=== PATIENT | female | born 1960 | race Caucasian/White ===

== ENCOUNTER 2016-10-19 14:11 | Emergency (ER) | payer OTHER ==
[2016-10-19 14:21] VITALS: BP 129/64; PULSE 64; RESP 20; TEMP 97.7
[2016-10-19] MEDS ORDERED: HYDROcodone/APAP 5-325MG 1 EACH TAB PO STA (14:40)
[2016-10-19] MEDS ORDERED: ORPHENADRINE 30 MG/ML 2 ML VIAL IM STA (14:40)
--- NOTE | 2016-10-19 15:19 | ED ---
Recheck HPI - General Chief Complaint: Recheck/Abnormal Lab/Rx Stated Complaint: pain all over-cancer patient Time Seen by Provider: 10/19/16 14:37 Source: patient, RN notes reviewed Mode of arrival: ambulatory Limitations: no limitations - History of Present Illness Initial Comments: Patient is a 56-year-old female presents to the emergency room for a medication refill. Patient states she has stage III endometrial cancer which is being treated for. Patient states her physician wrote her for a prescription of morphine. Patient states they wrote her a prescription for 90 pills but her insurance only authorized 60. Patient states she took her last dose yesterday and ran out. Patient states she's having all over body pain. Patient states she is unable to see her physician until a week from tomorrow. Patient states she needs enough pain medication to get her through the next week. Patient denies chest pain, shortness breath, headache, dizziness, fevers, chills. - Related Data Home Medications Medication Instructions Recorded Confirmed Levothyroxine Sodium [Synthroid] 25 mcg PO DAILY 12/05/13 10/19/16 Metoprolol Succinate [Toprol XL] 12.5 mg PO DAILY 05/08/15 10/19/16 Hydrochlorothiazide [Hydrodiuril] 25 mg PO DAILY 11/13/15 10/19/16 Cholecalciferol [Vitamin D3] 2,000 unit PO DAILY 12/17/15 10/19/16 risperiDONE [RisperDAL] 2 mg PO DAILY 12/17/15 10/19/16 Aspirin EC [Ecotrin Low Dose] 81 mg PO DAILY 02/29/16 10/19/16 Gabapentin [Neurontin] 300 mg PO QAM 02/29/16 10/19/16 Gabapentin [Neurontin] 600 mg PO BID@1700,2100 02/29/16 10/19/16 Lisinopril [Zestril] 20 mg PO DAILY 02/29/16 10/19/16 Methocarbamol [Robaxin] 750 mg PO TID PRN 02/29/16 10/19/16 Multivitamins, Thera [Multivitamin 1 tab PO DAILY 02/29/16 10/19/16 (formulary)] Omeprazole 20 mg PO DAILY 02/29/16 10/19/16 Sertraline [Zoloft] 200 mg PO DAILY 02/29/16 10/19/16 Simvastatin [Zocor] 80 mg PO HS 02/29/16 10/19/16 clonazePAM [KlonoPIN] 0.5 mg PO DAILY PRN 02/29/16 10/19/16 hydrOXYzine PAMOATE [Vistaril] 25 mg PO QID PRN 02/29/16 10/19/16 HYDROmorphone HCL [HYDROmorphone 8 mg PO DIRECTED 10/19/16 10/19/16 HCL] Morphine Sulfate [Morphine Sulfate 15 mg PO BID 10/19/16 10/19/16 ER] Previous Rx's Medication Instructions Recorded Docusate [Colace] 100 mg PO BID PRN #20 capsule 05/10/15 HYDROcodone/APAP 10-325MG [[place] 1 each PO Q6H PRN #30 tab 02/29/16 10-325] Morphine Sulfate ER [Ms Contin] 15 mg PO Q8H PRN #24 tab 10/19/16 Allergies Allergy/AdvReac Type Severity Reaction Status Date / Time No Known Allergies Allergy Verified 10/19/16 14:21 Review of Systems ROS Statement: Those systems with pertinent positive or pertinent negative responses have been documented in the HPI. ROS Other: All systems not noted in ROS Statement are negative. Past Medical History Past Medical History: Asthma, Cancer, COPD, GERD/Reflux, Myocardial Infarction ( [place]), Seizure Disorder, Sleep Apnea/CPAP/BIPAP Additional Past Medical History / Comment(s): complex regional pain syndrome/ sleep apnea, heart attack January 2015, stage 3 endometrial cancer Last Myocardial Infarction Date:: 01/2015 History of Any Multi-Drug Resistant Organisms: None Reported Past Surgical History: Breast Surgery, Cholecystectomy, Heart Catheterization Additional Past Surgical History / Comment(s): CYST REMOVAL FROM LEFT BREAST AND OVARY LEFT FOOT BUNIONECTOMY LEFT FOOT VAGAL NERVE STIMULATOR (left side of chest) Past Anesthesia/Blood Transfusion Reactions: No Reported Reaction Type of Cardiac Device: Permanent Pacemaker Device Placement Date:: 1996 Past Psychological History: Anxiety, Bipolar, Depression, Schizoaffective Disorder, Schizophrenia Smoking Status: Current some day smoker Past Alcohol Use History: None Reported Past Drug Use History: None Reported - Past Family History Mother Family Medical History: Diabetes Mellitus General Exam - General Exam Comments Initial Comments: Sitting on exam chair, no acute distress. Limitations: no limitations General appearance: alert, in no apparent distress Head exam: Present: atraumatic, normocephalic, normal inspection Eye exam: Present: normal appearance ENT exam: Present: normal exam Neck exam: Present: normal inspection Respiratory exam: Present: normal lung sounds bilaterally. Absent: respiratory distress Cardiovascular Exam: Present: regular rate, normal rhythm, normal heart sounds Extremities exam: Present: normal inspection Back exam: Present: normal inspection Neurological exam: Present: alert, oriented X3, CN II-XII intact, normal gait Psychiatric exam: Present: normal affect, normal mood Skin exam: Present: warm, dry, intact, normal color. Absent: rash Course Vital Signs 10/19/16 14:18 Temperature 97.7 F Pulse Rate 64 Respiratory 20 Rate Blood Pressure 129/64 O2 Sat by Pulse 98 Oximetry Medical Decision Making - Medical Decision Making Patient is a 56-year-old female presents emergency room for evaluation of medication refill. Patient states she has endometrial cancer. Agreed to send patient home with enough medication to last her until her next appointment with her physician. Patient states she understands everything that was discussed with her. Return parameters discussed. Case discussed with Dr. Kumar. Disposition Clinical Impression: Encounter for medication refill, Endometrial cancer, Fall Disposition: HOME SELF-CARE Condition: Good Additional Instructions: Take medications as needed. Please follow-up with primary care provider. If any new symptom arises or symptoms worsen, return to ER as soon as possible. Prescriptions: Morphine Sulfate ER [Ms Contin] 15 mg PO Q8H PRN #24 tab PRN Reason: Pain Referrals: Casi Monteiro MD [Primary Care Provider] - 1-2 days Time of Disposition: 15:17
== END 2016-10-19 15:25 | disposition home or self-care (01) ==
LOC: EC 14:11
DX: C54.1 Malignant neoplasm of endometrium (principal); Z76.0 Encounter for issue of repeat prescription; K21.9 Gastro-esophageal reflux disease without esophagitis; G90.50 Complex regional pain syndrome I, unspecified; G40.909 Epilepsy, unspecified, not intractable, without status epilepticus; F41.9 Anxiety disorder, unspecified; F20.9 Schizophrenia, unspecified; F31.9 Bipolar disorder, unspecified; I25.2 Old myocardial infarction; F17.200 Nicotine dependence, unspecified, uncomplicated; Z79.82 Long term (current) use of aspirin; Z79.891 Long term (current) use of opiate analgesic; Z79.899 Other long term (current) drug therapy; W19.XXXA Unspecified fall, initial encounter
CPT/HCPCS: 99282

== ENCOUNTER 2016-11-26 07:12 | Emergency (ER) | payer OTHER ==
[2016-11-26] MEDS ORDERED: LORazepam 2 MG/ML SYRINGE IV STA (07:44)
[2016-11-26] MEDS ORDERED: SODIUM CHLORIDE 0.9% 500 ML IV STA (07:44)
[2016-11-26] MEDS ORDERED: HYDROmorphone 1 MG/ML 1 ML SYRINGE IVP STA (07:45)
--- NOTE | 2016-11-26 07:47 | ED ---
General Adult HPI - General Chief complaint: Shortness of Breath Stated complaint: diff breathing Time Seen by Provider: 11/26/16 07:15 Source: patient, RN notes reviewed Mode of arrival: wheelchair Limitations: no limitations - History of Present Illness Initial comments: This is a 56-year-old female with endometrial cancer as well as a past history of COPD and a current history of smoking. Patient comes in today because she states her last couple days she's been short of breath. Patient denies any recent fever chills or cough. Patient denies any chest pain or palpitations. Patient states she's been out of her Klonopin for a few days because she receives a from the [employer] and they have been behind. Patient states she does have a history of anxiety. Patient denies any abdominal pain. Patient denies any nausea vomiting diarrhea. Patient denies any lightheadedness dizziness or near syncopal episode. Patient denies any headache patient denies numbness weakness. Patient denies any swelling in her legs. Patient denies any calf tenderness. - Related Data Home Medications Medication Instructions Recorded Confirmed Levothyroxine Sodium [Synthroid] 25 mcg PO DAILY 12/05/13 10/19/16 Metoprolol Succinate [Toprol XL] 12.5 mg PO DAILY 05/08/15 10/19/16 Hydrochlorothiazide [Hydrodiuril] 25 mg PO DAILY 11/13/15 10/19/16 Cholecalciferol [Vitamin D3] 2,000 unit PO DAILY 12/17/15 10/19/16 risperiDONE [RisperDAL] 2 mg PO DAILY 12/17/15 10/19/16 Aspirin EC [Ecotrin Low Dose] 81 mg PO DAILY 02/29/16 10/19/16 Gabapentin [Neurontin] 300 mg PO QAM 02/29/16 10/19/16 Gabapentin [Neurontin] 600 mg PO BID@1700,2100 02/29/16 10/19/16 Lisinopril [Zestril] 20 mg PO DAILY 02/29/16 10/19/16 Methocarbamol [Robaxin] 750 mg PO TID PRN 02/29/16 10/19/16 Multivitamins, Thera [Multivitamin 1 tab PO DAILY 02/29/16 10/19/16 (formulary)] Omeprazole 20 mg PO DAILY 02/29/16 10/19/16 Sertraline [Zoloft] 200 mg PO DAILY 02/29/16 10/19/16 Simvastatin [Zocor] 80 mg PO HS 02/29/16 10/19/16 clonazePAM [KlonoPIN] 0.5 mg PO DAILY PRN 02/29/16 10/19/16 hydrOXYzine PAMOATE [Vistaril] 25 mg PO QID PRN 02/29/16 10/19/16 HYDROmorphone HCL [HYDROmorphone 8 mg PO DIRECTED 10/19/16 10/19/16 HCL] Morphine Sulfate [Morphine Sulfate 15 mg PO BID 10/19/16 10/19/16 ER] Previous Rx's Medication Instructions Recorded Docusate [Colace] 100 mg PO BID PRN #20 capsule 05/10/15 HYDROcodone/APAP 10-325MG [[place] 1 each PO Q6H PRN #30 tab 02/29/16 10-325] Morphine Sulfate ER [Ms Contin] 15 mg PO Q8H PRN #24 tab 10/19/16 Magnesium Oxide [Mag-Ox] 250 mg PO TID #9 tablet 11/26/16 Potassium Chloride ER [K-Dur 20] 20 meq PO DAILY #5 tab 11/26/16 clonazePAM [KlonoPIN] 0.5 mg PO BID #14 tablet 11/26/16 clonazePAM [KlonoPIN] 2 mg PO HS #7 tab 11/26/16 Allergies Allergy/AdvReac Type Severity Reaction Status Date / Time No Known Allergies Allergy Verified 11/26/16 07:19 Review of Systems ROS Statement: Those systems with pertinent positive or pertinent negative responses have been documented in the HPI. ROS Other: All systems not noted in ROS Statement are negative. Past Medical History Past Medical History: Asthma, Cancer, COPD, GERD/Reflux, Myocardial Infarction ( [place]), Seizure Disorder, Sleep Apnea/CPAP/BIPAP Additional Past Medical History / Comment(s): complex regional pain syndrome/ sleep apnea, heart attack January 2015, stage 3 endometrial cancer Last Myocardial Infarction Date:: 01/2015 History of Any Multi-Drug Resistant Organisms: None Reported Past Surgical History: Breast Surgery, Cholecystectomy, Heart Catheterization Additional Past Surgical History / Comment(s): CYST REMOVAL FROM LEFT BREAST AND OVARY LEFT FOOT BUNIONECTOMY LEFT FOOT VAGAL NERVE STIMULATOR (left side of chest) Past Anesthesia/Blood Transfusion Reactions: No Reported Reaction Type of Cardiac Device: Permanent Pacemaker Device Placement Date:: 1996 Past Psychological History: Anxiety, Bipolar, Depression, Schizoaffective Disorder, Schizophrenia Smoking Status: Current every day smoker Past Alcohol Use History: None Reported Past Drug Use History: None Reported - Past Family History Mother Family Medical History: Diabetes Mellitus General Exam - General Exam Comments Initial Comments: GENERAL: Patient is well-developed and well-nourished. Patient is nontoxic and well- hydrated and is in mild distress. ENT: Neck is soft and supple. No significant lymphadenopathy is noted. Oropharynx is clear. Moist mucous membranes. Neck has full range of motion without eliciting any pain. EYES: The sclera were anicteric and conjunctiva were pink and moist. Extraocular movements were intact and pupils were equal round and reactive to light. Eyelids were unremarkable. PULMONARY: Unlabored respirations. Good breath sounds bilaterally. No audible rales rhonchi or wheezing was noted. CARDIOVASCULAR: There is a regular rate and rhythm without any murmurs gallops or rubs. ABDOMEN: Soft and nontender with normal bowel sounds. No palpable organomegaly was noted. There is no palpable pulsatile mass. SKIN: Skin is clear with no lesions or rashes and otherwise unremarkable. NEUROLOGIC: Patient is alert and oriented x3. Cranial nerves II through XII are grossly intact. Motor and sensory are also intact. Normal speech, volume and content. Symmetrical smile. MUSCULOSKELETAL: Normal extremities with adequate strength and full range of motion. No lower extremity swelling or edema. No calf tenderness. LYMPHATICS: No significant lymphadenopathy is noted PSYCHIATRIC: Normal psychiatric evaluation. Normal interpersonal interactions appears functionally intact in deals appropriately with others. No signs of depression. Patient seems mildly anxious Limitations: no limitations Course Vital Signs 11/26/16 11/26/16 11/26/16 07:16 07:47 08:13 Temperature 97.8 F Pulse Rate 63 45 L Respiratory 26 H 26 H 18 Rate Blood Pressure 147/73 154/81 O2 Sat by Pulse 99 100 Oximetry 11/26/16 09:07 Temperature Pulse Rate 56 L Respiratory 18 Rate Blood Pressure 127/79 O2 Sat by Pulse 100 Oximetry Medical Decision Making - Medical Decision Making EKG shows sinus bradycardia with occasional PVC at 57 bpm MI interval is 140 QRS is 90 QT intervals 46 QTC is 531. Patient's EKG shows no ST segment elevation or depression. Patient's pulse ox on room air is 99%. Patient's chest x-ray shows no acute abnormality. I went back in to reevaluate the patient after she was medicated she felt considerably better and no longer short of breath. Patient was hypomagnesemic and hypokalemic so I started replacing magnesium and potassium. - Lab Data Result diagrams: 11/26/16 07:40 11/26/16 07:40 Lab Results 11/26/16 11/26/16 11/26/16 Range/Units 07:40 07:40 07:40 WBC 2.0 L* (3.8-10.6) k/uL RBC 3.50 L (3.80-5.40) m/uL Hgb 10.6 L (11.4-16.0) gm/dL Hct 28.9 L (34.0-46.0) % MCV 82.8 (80.0-100.0) fL MCH 30.2 (25.0-35.0) pg MCHC 36.5 (31.0-37.0) g/dL RDW 16.3 H (11.5-15.5) % Plt Count 99 L (150-450) k/uL Neutrophils % 53 % Lymphocytes % 39 % Monocytes % 3 % Eosinophils % 0 % Basophils % 1 % Neutrophils # 1.0 L (1.3-7.7) k/uL Lymphocytes # 0.8 L (1.0-4.8) k/uL Monocytes # 0.1 (0-1.0) k/uL Eosinophils # 0.0 (0-0.7) k/uL Basophils # 0.0 (0-0.2) k/uL Manual Slide Review Performed Large Platelets Present Poikilocytosis (manual Present Anisocytosis Slight PT (9.0-12.0) sec INR (<1.1) APTT (22.0-30.0) sec D-Dimer (<0.60) mg/L FEU Sodium 133 L (137-145) mmol/L Potassium 2.7 L* (3.5-5.1) mmol/L Chloride 96 L (98-107) mmol/L Carbon Dioxide 25 (22-30) mmol/L Anion Gap 12 mmol/L BUN 11 (7-17) mg/dL Creatinine 0.50 L (0.52-1.04) mg/dL Est GFR (MDRD) Af Amer >60 (>60 ml/min/1.73 sqM) Est GFR (MDRD) Non-Af >60 (>60 ml/min/1.73 sqM) Glucose 124 H (74-99) mg/dL Calcium 9.9 (8.4-10.2) mg/dL Magnesium 1.0 L* (1.6-2.3) mg/dL Total Bilirubin 1.1 (0.2-1.3) mg/dL AST 41 H (14-36) U/L ALT 36 (9-52) U/L Alkaline Phosphatase 78 (38-126) U/L Total Creatine Kinase 369 H (30-135) U/L CK-MB (CK-2) 3.1 H* (0.0-2.4) ng/mL CK-MB (CK-2) Rel Index 0.8 Troponin I <0.012 (0.000-0.034) ng/mL Total Protein 7.4 (6.3-8.2) g/dL Albumin 4.6 (3.5-5.0) g/dL 11/26/16 Range/Units 07:40 WBC (3.8-10.6) k/uL RBC (3.80-5.40) m/uL Hgb (11.4-16.0) gm/dL Hct (34.0-46.0) % MCV (80.0-100.0) fL MCH (25.0-35.0) pg MCHC (31.0-37.0) g/dL RDW (11.5-15.5) % Plt Count (150-450) k/uL Neutrophils % % Lymphocytes % % Monocytes % % Eosinophils % % Basophils % % Neutrophils # (1.3-7.7) k/uL Lymphocytes # (1.0-4.8) k/uL Monocytes # (0-1.0) k/uL Eosinophils # (0-0.7) k/uL Basophils # (0-0.2) k/uL Manual Slide Review Large Platelets Poikilocytosis (manual Anisocytosis PT 10.7 (9.0-12.0) sec INR 1.1 (<1.1) APTT 25.2 (22.0-30.0) sec D-Dimer 0.28 (<0.60) mg/L FEU Sodium (137-145) mmol/L Potassium (3.5-5.1) mmol/L Chloride (98-107) mmol/L Carbon Dioxide (22-30) mmol/L Anion Gap mmol/L BUN (7-17) mg/dL Creatinine (0.52-1.04) mg/dL Est GFR (MDRD) Af Amer (>60 ml/min/1.73 sqM) Est GFR (MDRD) Non-Af (>60 ml/min/1.73 sqM) Glucose (74-99) mg/dL Calcium (8.4-10.2) mg/dL Magnesium (1.6-2.3) mg/dL Total Bilirubin (0.2-1.3) mg/dL AST (14-36) U/L ALT (9-52) U/L Alkaline Phosphatase (38-126) U/L Total Creatine Kinase (30-135) U/L CK-MB (CK-2) (0.0-2.4) ng/mL CK-MB (CK-2) Rel Index Troponin I (0.000-0.034) ng/mL Total Protein (6.3-8.2) g/dL Albumin (3.5-5.0) g/dL Disposition Clinical Impression: Anxiety, Hypomagnesemia, Hypokalemia Disposition: HOME SELF-CARE Prescriptions: clonazePAM [KlonoPIN] 2 mg PO HS #7 tab clonazePAM [KlonoPIN] 0.5 mg PO BID #14 tablet Magnesium Oxide [Mag-Ox] 250 mg PO TID #9 tablet Potassium Chloride ER [K-Dur 20] 20 meq PO DAILY #5 tab Referrals: Casi Monteiro MD [Primary Care Provider] - 1-2 days Time of Disposition: 10:25
[2016-11-26 08:15] VITALS: RESP 18
[2016-11-26 08:15] LABS: Anisocytosis Slight; Basophils % (A) 1 %; CH 29.7; Eosinophils % (A) 0 %; HCT 28.9 % (34.0-46.0); HDW 2.75; HGB 10.6 gm/dL (11.4-16.0); Luc # (Auto) 0.09; Luc % (Auto) 4; Lymphocytes # (A) 0.8 k/uL (1.0-4.8); Lymphocytes % (A) 39 %; MCH 30.2 pg (25.0-35.0); MCHC 36.5 g/dL (31.0-37.0); MCV 82.8 fL (80.0-100.0); Monocytes # (A) 0.1 k/uL (0-1.0); Monocytes % (A) 3 %; Neutrophils % (A) 53 %; RDW 16.3 % (11.5-15.5)
--- NOTE | 2016-11-26 08:17 | XR ---
EXAMINATION TYPE: XR chest 2V DATE OF EXAM: 11/26/2016 8:08 AM COMPARISON: 02/28/2016 HISTORY: 56-year-old female difficulty in breathing TECHNIQUE: Frontal and lateral views FINDINGS: Heart is upper limits of normal in size. Atherosclerotic arch calcifications. Mild diffuse interstiti al prominence as a chronic appearance. Generator device projecting over the anterior left chest with leads extending to the left side of the neck. No consolidation or pleural effusion. Band of atelectas is at the posterior base. IMPRESSION: Borderline cardiomegaly and chronic changes, possible underlying COPD. Clinically correlate. No acute process seen.
[2016-11-26 08:23] LABS: INR 1.1 (<1.1); Partial Thromboplastin Time 25.2 sec (22.0-30.0); Prothrombin Time 10.7 sec (9.0-12.0)
[2016-11-26 08:28] LABS: ALT 36 U/L (9-52); AST 41 U/L (14-36); Alkaline Phosphatase 78 U/L (38-126); Anion Gap 12 mmol/L; Blood Urea Nitrogen 11 mg/dL (7-17); Calcium 9.9 mg/dL (8.4-10.2); Carbon Dioxide 25 mmol/L (22-30); Chloride 96 mmol/L (98-107); Glucose 124 mg/dL (74-99); Non-African American GFR(MDRD) >60 (>60 ml/min/1.73 sqM); Sodium 133 mmol/L (137-145); Total Bilirubin 1.1 mg/dL (0.2-1.3); Total Protein 7.4 g/dL (6.3-8.2)
[2016-11-26 08:29] LABS: Large Platelets Present; Manual Review Performed
[2016-11-26 08:49] LABS: Potassium 2.7 mmol/L (3.5-5.1)
[2016-11-26] MEDS ORDERED: MAGNESIUM SULFATE-D5W PMX 1 GM in DEXTROSE/WATER 1 100ML.BAG IVPB ONE (08:51)
[2016-11-26] MEDS ORDERED: POTASSIUM CHLORIDE ER 20 MEQ TAB.ER PO STA ×2 (08:51→10:07)
[2016-11-26 09:04] LABS: Creatine Kinase 369 U/L (30-135)
[2016-11-26 09:17] LABS: Troponin I <0.012 ng/mL (0.000-0.034)
[2016-11-26 09:22] LABS: Creatine Kinase MB 3.1 ng/mL (0.0-2.4)
[2016-11-26 10:31] VITALS: BP 156/73; PULSE 55; TEMP 98
== END 2016-11-26 10:40 | disposition home or self-care (01) ==
LOC: EC 07:12
DX: F41.9 Anxiety disorder, unspecified (principal); E87.6 Hypokalemia; E83.42 Hypomagnesemia; R00.1 Bradycardia, unspecified; R06.02 Shortness of breath; K21.9 Gastro-esophageal reflux disease without esophagitis; G40.909 Epilepsy, unspecified, not intractable, without status epilepticus; I25.2 Old myocardial infarction; F31.9 Bipolar disorder, unspecified; F25.9 Schizoaffective disorder, unspecified; F17.200 Nicotine dependence, unspecified, uncomplicated; Z95.0 Presence of cardiac pacemaker; Z79.82 Long term (current) use of aspirin; Z79.891 Long term (current) use of opiate analgesic; Z79.899 Other long term (current) drug therapy
CPT/HCPCS: 99285; 96365; 96375 ×2; 36415; 93005; 85379; 80053; 82550; 82553; 83735; 84484; 85025; 85610; 85730; 87040; 71020; J2060; J1170; J3475

== ENCOUNTER 2016-12-25 10:18 | Emergency (ER) | payer OTHER ==
[2016-12-25] MEDS ORDERED: cloNIDine 0.1 MG/24HR PATCH 1 PATCH PATCH TRANSDERM STA (11:58)
[2016-12-25] MEDS ORDERED: DICYCLOMINE 10 MG/ML 2 ML AMP IM STA (11:58)
[2016-12-25] MEDS ORDERED: ORPHENADRINE 30 MG/ML 2 ML VIAL IM STA (11:58)
--- NOTE | 2016-12-25 12:16 | ED ---
Abdominal Pain HPI - General Chief Complaint: Abdominal Pain Stated Complaint: flu symptoms Time Seen by Provider: 12/25/16 11:07 Source: patient, RN notes reviewed Mode of arrival: wheelchair Limitations: no limitations - History of Present Illness Initial Comments: 56-year-old female presents to the emergency department with a chief complaint of needing help with medication withdrawal. Patient was on morphine and Dilaudid with her doctor to get off on Monday. Patient states she just needs something to help with her symptoms that she goes through withdrawal. Patient states she's having cramping she's having abdominal cramping she's having some nausea. Patient states she hasn't had any fever or chills. Patient states that she was concerned due to her continued symptoms so she thought that she should be evaluated. Patient denies any recent fever, chills, shortness of breath, chest pain, back pain, numbness or tingling, dysuria or hematuria, constipation or diarrhea, headaches or visual changes, or any other current symptoms. - Related Data Home Medications Medication Instructions Recorded Confirmed Levothyroxine Sodium [Synthroid] 25 mcg PO DAILY 12/05/13 12/25/16 Metoprolol Succinate [Toprol XL] 12.5 mg PO DAILY 05/08/15 12/25/16 Hydrochlorothiazide [Hydrodiuril] 25 mg PO DAILY 11/13/15 12/25/16 Cholecalciferol [Vitamin D3] 2,000 unit PO DAILY 12/17/15 12/25/16 risperiDONE [RisperDAL] 2 mg PO DAILY 12/17/15 12/25/16 Aspirin EC [Ecotrin Low Dose] 81 mg PO DAILY 02/29/16 12/25/16 Gabapentin [Neurontin] 300 mg PO QAM 02/29/16 12/25/16 Gabapentin [Neurontin] 600 mg PO BID@1700,2100 02/29/16 12/25/16 Lisinopril [Zestril] 20 mg PO DAILY 02/29/16 12/25/16 Methocarbamol [Robaxin] 750 mg PO TID PRN 02/29/16 12/25/16 Multivitamins, Thera [Multivitamin 1 tab PO DAILY 02/29/16 12/25/16 (formulary)] Omeprazole 20 mg PO DAILY 02/29/16 12/25/16 Sertraline [Zoloft] 200 mg PO DAILY 02/29/16 12/25/16 Simvastatin [Zocor] 80 mg PO HS 02/29/16 12/25/16 clonazePAM [KlonoPIN] 0.5 mg PO DAILY PRN 02/29/16 12/25/16 hydrOXYzine PAMOATE [Vistaril] 25 mg PO QID PRN 02/29/16 12/25/16 HYDROcodone/APAP 10-325MG [[place] 1 tab PO Q6H PRN 12/25/16 12/25/16 10-325] Previous Rx's Medication Instructions Recorded Docusate [Colace] 100 mg PO BID PRN #20 capsule 05/10/15 Magnesium Oxide [Mag-Ox] 250 mg PO TID #9 tablet 11/26/16 Potassium Chloride ER [K-Dur 20] 20 meq PO DAILY #5 tab 11/26/16 clonazePAM [KlonoPIN] 0.5 mg PO BID #14 tablet 11/26/16 clonazePAM [KlonoPIN] 2 mg PO HS #7 tab 11/26/16 Ondansetron Odt [Zofran ODT] 4 mg PO Q8HR PRN #20 tab 12/25/16 Allergies Allergy/AdvReac Type Severity Reaction Status Date / Time No Known Allergies Allergy Verified 12/25/16 10:43 Review of Systems ROS Statement: Those systems with pertinent positive or pertinent negative responses have been documented in the HPI. ROS Other: All systems not noted in ROS Statement are negative. Past Medical History Past Medical History: Asthma, Cancer, COPD, GERD/Reflux, Myocardial Infarction ( [place]), Seizure Disorder, Sleep Apnea/CPAP/BIPAP Additional Past Medical History / Comment(s): complex regional pain syndrome/ sleep apnea, heart attack January 2015, stage 3 endometrial cancer Last Myocardial Infarction Date:: 01/2015 History of Any Multi-Drug Resistant Organisms: None Reported Past Surgical History: Breast Surgery, Cholecystectomy, Heart Catheterization Additional Past Surgical History / Comment(s): CYST REMOVAL FROM LEFT BREAST AND OVARY LEFT FOOT BUNIONECTOMY LEFT FOOT VAGAL NERVE STIMULATOR (left side of chest) Past Anesthesia/Blood Transfusion Reactions: No Reported Reaction Type of Cardiac Device: Permanent Pacemaker Device Placement Date:: 1996 Past Psychological History: Anxiety, Bipolar, Depression, Schizoaffective Disorder, Schizophrenia Smoking Status: Former smoker Past Alcohol Use History: None Reported Past Drug Use History: None Reported - Past Family History Mother Family Medical History: Diabetes Mellitus General Exam Limitations: no limitations General appearance: alert, in no apparent distress ENT exam: Present: normal exam, mucous membranes moist Neck exam: Present: normal inspection. Absent: tenderness, meningismus, lymphadenopathy Respiratory exam: Present: normal lung sounds bilaterally. Absent: respiratory distress, wheezes, rales, rhonchi, stridor Cardiovascular Exam: Present: regular rate, normal rhythm, normal heart sounds. Absent: systolic murmur, diastolic murmur, rubs, gallop, clicks GI/Abdominal exam: Present: soft, normal bowel sounds. Absent: distended, tenderness, guarding, rebound, rigid Neurological exam: Present: alert, oriented X3 Psychiatric exam: Present: normal affect, normal mood Skin exam: Present: warm, dry, intact, normal color. Absent: rash Course Vital Signs 12/25/16 10:24 Temperature 98.8 F Pulse Rate 67 Respiratory 20 Rate Blood Pressure 150/81 O2 Sat by Pulse 98 Oximetry Medical Decision Making - Medical Decision Making 56-year-old female presents emergency Department with a chief complaint of medication withdrawal. This time we will give the patient clonidine home. As well as a prescription for Zofran. We discussed follow-up with her doctor we did discuss withdrawal. We discussed return parameters and all her questions. She stated that she understood and she is laying. She will be discharged home. Disposition Clinical Impression: Opiate withdrawal Disposition: HOME SELF-CARE Condition: Stable Instructions: Opioid Withdrawal (ED) Additional Instructions: Please use medication as discussed. Please follow up with family doctor if symptoms have not improved over the next two days. Please return to the emergency room if your symptoms increase or worsen or for any other concerns. Prescriptions: Ondansetron Odt [Zofran ODT] 4 mg PO Q8HR PRN #20 tab PRN Reason: Nausea Referrals: Casi Monteiro MD [Primary Care Provider] - 1-2 days Time of Disposition: 12:16
[2016-12-25 12:26] VITALS: BP 142/77; PULSE 49; RESP 18; TEMP 98.9
== END 2016-12-25 12:29 | disposition home or self-care (01) ==
LOC: EC 10:18
DX: F11.23 Opioid dependence with withdrawal (principal); K21.9 Gastro-esophageal reflux disease without esophagitis; G40.909 Epilepsy, unspecified, not intractable, without status epilepticus; F20.9 Schizophrenia, unspecified; F31.9 Bipolar disorder, unspecified; I25.2 Old myocardial infarction; Z87.891 Personal history of nicotine dependence; Z79.82 Long term (current) use of aspirin; Z79.899 Other long term (current) drug therapy; Z90.49 Acquired absence of other specified parts of digestive tract
CPT/HCPCS: 99283; 96372 ×2; J0500; J2360

== ENCOUNTER 2016-12-26 17:23 | Emergency (ER) | payer OTHER ==
[2016-12-26] MEDS ORDERED: SODIUM CHLORIDE 0.9% 1,000 ML IV ONE (18:48)
[2016-12-26] MEDS ORDERED: LORazepam 2 MG/ML SYRINGE IV STA (18:48)
--- NOTE | 2016-12-26 18:52 | ED ---
General Adult HPI - General Chief complaint: Nausea/Vomiting/Diarrhea Stated complaint: poss dehydration, Ca Patient, withdrawals Time Seen by Provider: 12/26/16 18:35 Source: patient, RN notes reviewed Mode of arrival: wheelchair Limitations: no limitations - History of Present Illness Initial comments: Patient is a 56-year-old female since emergency room for evaluation of opiate withdrawals. Patient states she has a history of uterine cancer. Patient states she is still going through radiation treatment. Patient states that her oncologist recently stopped prescribing her pain medications. Patient states she used to be on Dilaudid and morphine. Patient states she has been breaking out in cold sweats, abdominal cramping and nausea. Patient states she had a radiation treatment today and having worsening nausea. Patient states she feels like she is dehydrated. Patient states she hasn't been urinating as much as usual. Patient states she was here yesterday and the medications did not help her. - Related Data Home Medications Medication Instructions Recorded Confirmed Levothyroxine Sodium [Synthroid] 25 mcg PO DAILY 12/05/13 12/26/16 Metoprolol Succinate [Toprol XL] 12.5 mg PO DAILY 05/08/15 12/26/16 Hydrochlorothiazide [Hydrodiuril] 25 mg PO DAILY 11/13/15 12/26/16 Cholecalciferol [Vitamin D3] 2,000 unit PO DAILY 12/17/15 12/26/16 risperiDONE [RisperDAL] 2 mg PO DAILY 12/17/15 12/26/16 Aspirin EC [Ecotrin Low Dose] 81 mg PO DAILY 02/29/16 12/26/16 Gabapentin [Neurontin] 300 mg PO QAM 02/29/16 12/26/16 Gabapentin [Neurontin] 600 mg PO BID@1700,2100 02/29/16 12/26/16 Lisinopril [Zestril] 20 mg PO DAILY 02/29/16 12/26/16 Methocarbamol [Robaxin] 750 mg PO TID PRN 02/29/16 12/26/16 Multivitamins, Thera [Multivitamin 1 tab PO DAILY 02/29/16 12/26/16 (formulary)] Omeprazole 20 mg PO DAILY 02/29/16 12/26/16 Sertraline [Zoloft] 200 mg PO DAILY 02/29/16 12/26/16 Simvastatin [Zocor] 80 mg PO HS 02/29/16 12/26/16 clonazePAM [KlonoPIN] 0.5 mg PO DAILY PRN 02/29/16 12/26/16 hydrOXYzine PAMOATE [Vistaril] 25 mg PO QID PRN 02/29/16 12/26/16 HYDROcodone/APAP 10-325MG [[place] 1 tab PO Q6H PRN 12/25/16 12/26/16 10-325] Ibuprofen [Motrin] 800 mg PO DAILY PRN 12/26/16 12/26/16 Previous Rx's Medication Instructions Recorded Docusate [Colace] 100 mg PO BID PRN #20 capsule 05/10/15 Magnesium Oxide [Mag-Ox] 250 mg PO TID #9 tablet 11/26/16 Potassium Chloride ER [K-Dur 20] 20 meq PO DAILY #5 tab 11/26/16 clonazePAM [KlonoPIN] 0.5 mg PO BID #14 tablet 11/26/16 clonazePAM [KlonoPIN] 2 mg PO HS #7 tab 11/26/16 Ondansetron Odt [Zofran ODT] 4 mg PO Q8HR PRN #20 tab 12/25/16 Magnesium Chloride [Slow-Mag] 128 mg PO DAILY 5 Days 12/26/16 Potassium Chloride ER [K-Dur 20] 40 meq PO DAILY 5 Days 12/26/16 Allergies Allergy/AdvReac Type Severity Reaction Status Date / Time No Known Allergies Allergy Verified 12/26/16 18:34 Review of Systems ROS Statement: Those systems with pertinent positive or pertinent negative responses have been documented in the HPI. ROS Other: All systems not noted in ROS Statement are negative. Past Medical History Past Medical History: Asthma, Cancer, COPD, GERD/Reflux, Myocardial Infarction ( [place]), Seizure Disorder, Sleep Apnea/CPAP/BIPAP Additional Past Medical History / Comment(s): complex regional pain syndrome/ sleep apnea, heart attack January 2015, stage 3 endometrial cancer Last Myocardial Infarction Date:: 01/2015 History of Any Multi-Drug Resistant Organisms: None Reported Past Surgical History: Breast Surgery, Cholecystectomy, Heart Catheterization Additional Past Surgical History / Comment(s): CYST REMOVAL FROM LEFT BREAST AND OVARY LEFT FOOT BUNIONECTOMY LEFT FOOT VAGAL NERVE STIMULATOR (left side of chest) Past Anesthesia/Blood Transfusion Reactions: No Reported Reaction Type of Cardiac Device: Permanent Pacemaker Device Placement Date:: 1996 Past Psychological History: Anxiety, Bipolar, Depression, Schizoaffective Disorder, Schizophrenia Smoking Status: Former smoker Past Alcohol Use History: None Reported Past Drug Use History: None Reported - Past Family History Mother Family Medical History: Diabetes Mellitus General Exam - General Exam Comments Initial Comments: Laying in exam room, no distress. Limitations: no limitations General appearance: alert, in no apparent distress Head exam: Present: atraumatic, normocephalic, normal inspection Eye exam: Present: normal appearance ENT exam: Present: normal exam Neck exam: Present: normal inspection Respiratory exam: Present: normal lung sounds bilaterally. Absent: respiratory distress Cardiovascular Exam: Present: regular rate, normal rhythm, normal heart sounds GI/Abdominal exam: Present: soft, normal bowel sounds. Absent: distended, tenderness, guarding, rebound, rigid Extremities exam: Present: normal inspection Back exam: Present: normal inspection Neurological exam: Present: alert, oriented X3, CN II-XII intact, normal gait Psychiatric exam: Present: normal affect, normal mood Skin exam: Present: warm, dry, intact, normal color. Absent: rash Course Vital Signs 12/26/16 12/26/16 12/26/16 17:24 19:07 20:14 Temperature 98.6 F 97.9 F 97.4 F L Pulse Rate 63 55 L 54 L Respiratory 20 16 16 Rate Blood Pressure 136/85 140/71 141/70 O2 Sat by Pulse 99 99 100 Oximetry 12/26/16 12/26/16 21:20 21:58 Temperature Pulse Rate 66 55 L Respiratory 20 20 Rate Blood Pressure 165/77 151/79 O2 Sat by Pulse 100 100 Oximetry Medical Decision Making - Medical Decision Making patient is a 56-year-old female presents to the emergency room for evaluation opiate withdrawal. Patient noted to have hypokalemia and hypomagnesemia. Patient repleted with both. Patient will be sent home with both potassium and magnesium for the next few days and advised to follow-up with primary care provider for reevaluation of labs. Patient states she is feeling better. Patient is now eating in the room. Patient can be discharged. Return parameters discussed. Case discussed with Dr. Quiroz. - Lab Data Result diagrams: 12/26/16 18:45 12/26/16 18:45 Lab Results 12/26/16 12/26/1612/26/17 Range/Units 18:45 18:45 19:52 WBC 4.6 (3.8-10.6) k/uL RBC 3.22 L (3.80-5.40) m/uL Hgb 10.0 L (11.4-16.0) gm/dL Hct 28.0 L (34.0-46.0) % MCV 87.0 (80.0-100.0) fL MCH 30.9 (25.0-35.0) pg MCHC 35.6 (31.0-37.0) g/dL RDW 17.0 H (11.5-15.5) % Plt Count 297 D (150-450) k/uL Neutrophils % 57 % Lymphocytes % 32 % Monocytes % 7 % Eosinophils % 1 % Basophils % 0 % Neutrophils # 2.6 (1.3-7.7) k/uL Lymphocytes # 1.5 (1.0-4.8) k/uL Monocytes # 0.3 (0-1.0) k/uL Eosinophils # 0.0 (0-0.7) k/uL Basophils # 0.0 (0-0.2) k/uL Anisocytosis Slight Sodium 130 L (137-145) mmol/L Potassium 2.7 L* (3.5-5.1) mmol/L Chloride 92 L (98-107) mmol/L Carbon Dioxide 28 (22-30) mmol/L Anion Gap 10 mmol/L BUN 16 (7-17) mg/dL Creatinine 0.60 (0.52-1.04) mg/dL Est GFR (MDRD) Af Amer >60 (>60 ml/min/1.73 sqM) Est GFR (MDRD) Non-Af >60 (>60 ml/min/1.73 sqM) Glucose 96 (74-99) mg/dL Calcium 9.4 (8.4-10.2) mg/dL Magnesium 1.3 L (1.6-2.3) mg/dL Total Bilirubin 0.3 (0.2-1.3) mg/dL AST 23 (14-36) U/L ALT 34 (9-52) U/L Alkaline Phosphatase 55 (38-126) U/L Total Protein 6.1 L (6.3-8.2) g/dL Albumin 3.9 (3.5-5.0) g/dL Urine Color Yellow Urine Appearance Clear (Clear) Urine pH 6.5 (5.0-8.0) Ur Specific [place] 1.011 (1.001-1.035) Urine Protein Trace H (Negative) Urine Glucose (UA) Negative (Negative) Urine Ketones Negative (Negative) Urine Blood Negative (Negative) Urine Nitrite Negative (Negative) Urine Bilirubin Negative (Negative) Urine Urobilinogen <2.0 (<2.0) mg/dL Ur Leukocyte Esterase Small H (Negative) Urine RBC <1 (0-5) /hpf Urine WBC 4 (0-5) /hpf Ur Squamous Epith Cells <1 (0-4) /hpf Ur Renal Epithelial Cell <1 (0) /hpf Urine Bacteria Rare H (None) /hpf Hyaline Casts 1 (0-2) /lpf Disposition Clinical Impression: Opiate withdrawal, Hypokalemia, Hypomagnesemia Disposition: HOME SELF-CARE Condition: Good Instructions: Hypokalemia (ED), Hypomagnesemia (ED) Additional Instructions: Take medications as directed. Please follow up with primary care provider or oncologist for reevaluation in 24-48 hours. Drink plenty of water. If any new symptom arises or symptoms worsen, return to ER as soon as possible. Prescriptions: Magnesium Chloride [Slow-Mag] 128 mg PO DAILY 5 Days Potassium Chloride ER [K-Dur 20] 40 meq PO DAILY 5 Days Referrals: Casi Monteiro MD [Primary Care Provider] - 1-2 days Time of Disposition: 22:28
[2016-12-26 19:25] LABS: Anisocytosis Slight; Basophils % (A) 0 %; CHCM 36.8; Eosinophils % (A) 1 %; HDW 2.82; Luc # (Auto) 0.17; Luc % (Auto) 4; Lymphocytes # (A) 1.5 k/uL (1.0-4.8); Lymphocytes % (A) 32 %; MCH 30.9 pg (25.0-35.0); MCHC 35.6 g/dL (31.0-37.0); Mean Platelet Volume 7.7; Monocytes # (A) 0.3 k/uL (0-1.0); Monocytes % (A) 7 %; Neutrophils # (A) 2.6 k/uL (1.3-7.7); Neutrophils % (A) 57 %; RBC 3.22 m/uL (3.80-5.40); WBC 4.6 k/uL (3.8-10.6); WBC (Perox) 4.96
[2016-12-26 19:32] LABS: ALT 34 U/L (9-52); AST 23 U/L (14-36); Alkaline Phosphatase 55 U/L (38-126); Anion Gap 10 mmol/L; Blood Urea Nitrogen 16 mg/dL (7-17); Calcium 9.4 mg/dL (8.4-10.2); Carbon Dioxide 28 mmol/L (22-30); Chloride 92 mmol/L (98-107); Glucose 96 mg/dL (74-99); Magnesium 1.3 mg/dL (1.6-2.3); Non-African American GFR(MDRD) >60 (>60 ml/min/1.73 sqM); Sodium 130 mmol/L (137-145); Total Bilirubin 0.3 mg/dL (0.2-1.3); Total Protein 6.1 g/dL (6.3-8.2)
[2016-12-26 19:58] LABS: Potassium 2.7 mmol/L (3.5-5.1)
[2016-12-26 20:01] LABS: Appearance,Urine Clear (Clear); Bacteria,Urine Rare /hpf; Bilirubin,Urine Negative (Negative); Glucose,Urine (UA) Negative (Negative); Ketones,Urine Negative (Negative); Leukocyte Esterase,Urine Small (Negative); Nitrite,Urine Negative (Negative); PH, Urine 6.5 (5.0-8.0); Particle Count 4708; Protein,Urine Trace (Negative); RBC,Urine <1 /hpf (0-5); Renal Epithelial Cells,Urine <1 /hpf (0); Specific Gravity,Urine 1.011 (1.001-1.035); Squamous Epithelial Cell,Urine <1 /hpf (0-4); UA Billing (MACRO vs. MICRO) MICRO; Urobilinogen,Urine <2.0 mg/dL (<2.0); WBC,Urine 4 /hpf (0-5)
[2016-12-26] MEDS ORDERED: MAGNESIUM SULFATE-D5W PMX 1 GM in DEXTROSE/WATER 1 100ML.BAG IVPB ONE (20:04)
[2016-12-26] MEDS ORDERED: POTASSIUM CHLORIDE ER 20 MEQ TAB.ER PO STA (20:05)
[2016-12-26 20:16] VITALS: TEMP 97.4
[2016-12-26] MEDS ORDERED: KETOROLAC 30 MG/ML 1 ML VIAL IVP STA (21:13)
[2016-12-26 21:20] VITALS: RESP 20
[2016-12-26] MEDS ORDERED: ORPHENADRINE 30 MG/ML 2 ML VIAL IVP STA (21:53)
[2016-12-26 21:59] VITALS: BP 151/79; PULSE 55
== END 2016-12-26 23:00 | disposition home or self-care (01) ==
LOC: EC 17:23
DX: F11.23 Opioid dependence with withdrawal (principal); E87.6 Hypokalemia; E83.42 Hypomagnesemia; G40.909 Epilepsy, unspecified, not intractable, without status epilepticus; K21.9 Gastro-esophageal reflux disease without esophagitis; I25.2 Old myocardial infarction; F41.9 Anxiety disorder, unspecified; F31.9 Bipolar disorder, unspecified; F20.9 Schizophrenia, unspecified; C54.1 Malignant neoplasm of endometrium; Z87.891 Personal history of nicotine dependence; Z92.3 Personal history of irradiation; Z79.82 Long term (current) use of aspirin; Z79.899 Other long term (current) drug therapy
CPT/HCPCS: 36415; 80053; 83735; 85025; 81001; 99284; 96365; 96375 ×3; 96361; J2060; J2360; J1885; J3475